=== PATIENT | male | born 1975 | race Caucasian/White ===

== ENCOUNTER 2023-01-18 07:28 | Day surgery (SDC) | payer BC ==
[~2023-01-18] VITALS: Ht 188 cm; Wt 90.7 kg
[~2023-01-18 07:28] MED LIST: COZAAR100 MG PO; METFORMIN500 M2 PO
[2023-01-18 09:50] VITALS: BP 111/81
== END 2023-01-18 10:15 | disposition home or self-care (01) | DRG 951 ==
LOC: ENDO 07:28 → ORM 09:10 → ENDO 09:10 → ORM 09:40 → ENDO 10:15 → ORM 10:45 → ENDO 11:40
PROVIDERS: ATTEND Internal Medicine Gastroenterology
PROC: 0DBP8ZX Excision of Rectum, Via Natural or Artificial Opening Endoscopic, Diagnostic (ICD-10-PCS; principal; 2023-01-18)
DX: Z12.11 Encounter for screening for malignant neoplasm of colon (principal); K50.10 Crohn's disease of large intestine without complications; K64.8 Other hemorrhoids; I10 Essential (primary) hypertension; E78.5 Hyperlipidemia, unspecified; Z80.0 Family history of malignant neoplasm of digestive organs; Z86.010 Personal history of colon polyps